=== PATIENT | female | born 1970 | race Caucasian/White ===

== ENCOUNTER 2016-10-09 08:48 | Emergency (ER) | payer BC, MEDICAID ==
[~2016-10-09] VITALS: Ht 149.9 cm; Wt 70.8 kg
[2016-10-09] MEDS ORDERED: METFORMIN HCL500 M1 ORAL (08:59)
[2016-10-09 09:05] VITALS: BP 142/87
[2016-10-09] MEDS ORDERED: LORazepam Inj 2mg/ml 1ml IV ONE (09:15)
--- NOTE | 2016-10-09 09:24 | Emergency Room Report ---
History of Present Illness General Chief Complaint: Dizziness Source: Patient Present Illness HPI The patient presents with an episode of dizziness and weakness that began this morning at 8:45. She was nauseated went to the bathroom, felt dizzy and had heaviness in her head. She did not vomit. She also had some diarrhea (loose). She started feeling tingling in her hands and feet. This is persistent. She denies any chest pain, headache, fevers. She did not see the color of the diarrhea. She ate breakfast this morning. She is diabetic on metformin. Her sugar was 160 when she felt this. She reports that she is under tremendous amount of stress at this time. She reports her last menstrual period was normal but she has heavy periods -- she has a history of fibroids. Never with episodes like this in the past. No change in medication recently. Allergies: Coded Allergies: PENICILLINS (Verified Allergy, Severe, Anaphylaxis, 10/09/16) Patient History Past Medical History: see triage record Social History: Denies: alcohol use, smoking Social History Narrative - works for billing department Last Menstrual Period: sep 28 Now: No Reviewed Nursing Documentation: PMH: Agreed, PSxH: Agreed Nursing Documentation-PMH Past Medical History: No History, Except For Hx Diabetes: Yes Review of Systems All Other Systems: negative except mentioned in HPI Physical Exam Vital Signs Date Time Temp Pulse Resp B/P Pulse Ox O2 Delivery O2 Flow Rate FiO2 10/09/16 08:55 98.2 93 18 142/87 100 Room Air Sp02 EP Interpretation: reviewed, normal General Appearance: well appearing, no apparent distress, GCS 15 Head: normocephalic Eyes: bilateral eye PERRL, bilateral eye normal inspection ENT: moist mucus membranes Neck: supple Respiratory: lungs clear, normal breath sounds Cardiovascular #1: regular rate, rhythm Cardiovascular #2: 2+ radial (R) Gastrointestinal: normal inspection, normal bowel sounds, non tender, no mass, non-distended Musculoskeletal: back normal, gait/station normal, normal range of motion Neurologic: alert, oriented x3, plan examiner III-XII nml as tested, motor strength/tone normal - no drift, DTRs symmetric, sensory intact - subjective tingling and heaviness, cerebellar normal, speech normal Psychiatric: anxious Skin: normal inspection, warm/dry Medical Decision Making Diagnostic Impression: Primary Impression: Near syncope Additional Impressions: Hypokalemia Stress reaction ER Course Patient with episode of nausea followed by weakness and tingling of all extrem with persistent disoriented feelings. DDx: viral syndrome, hyperventilation, electrolyte abnormality, ACS, arrhythmia, vasovagal, dehydration amongst others. Complicated history with persistent symptoms -- needs emergent evaluation with labs, EKG, cardiac monitoring. The patient will be treated with IV hydration, zofran and small dose of Ativan. Labs with hypokalemia. Replacement given. Patient improved with treatment. Discussed etiologies. Patient stable for outpatient observation and treatment. Laboratory Tests Test 10/09/16 09:50 White Blood Count 9.3 K/UL (4.8-10.8) Red Blood Count 4.88 M/UL (4.20-5.40) Hemoglobin 12.6 G/DL (12.0-16.0) Hematocrit 40.2 % (37.0-47.0) Mean Corpuscular Volume 82 FL (80-99) Mean Corpuscular Hemoglobin 25.7 PG (27.0-31.0) L Mean Corpuscular Hemoglobin Concent 31.2 G/DL (32.0-36.0) L Red Cell Distribution Width 14.5 % (11.6-14.8) Platelet Count 400 K/UL (150-450) Mean Platelet Volume 5.9 FL (6.5-10.1) L Neutrophils (%) (Auto) 69.0 % (45.0-75.0) Lymphocytes (%) (Auto) 24.5 % (20.0-45.0) Monocytes (%) (Auto) 5.0 % (1.0-10.0) Eosinophils (%) (Auto) 0.9 % (0.0-3.0) Basophils (%) (Auto) 0.6 % (0.0-2.0) Prothrombin Time 9.6 SEC (9.30-11.50) Prothrombin Time INR 0.9 (0.9-1.1) PTT 25 SEC (23-33) Urine Color Pale yellow Urine Appearance Slightly cloudy Urine pH 7 (4.5-8.0) Urine Specific [place] 1.005 (1.005-1.035) Urine Protein Negative (NEGATIVE) Urine Glucose (UA) Negative (NEGATIVE) Urine Ketones Negative (NEGATIVE) Urine Occult Blood 1+ (NEGATIVE) H Urine Nitrite Negative (NEGATIVE) Urine Bilirubin Negative (NEGATIVE) Urine Urobilinogen Normal MG/DL (0.0-1.0) Urine Leukocyte Esterase Negative (NEGATIVE) Urine RBC 0-2 /HPF (0 - 2) Urine WBC 0-2 /HPF (0 - 2) Urine Squamous Epithelial Cells Few /LPF (NONE/OCC) Urine Bacteria Few /HPF (NONE) Urine HCG, Qualitative Negative Sodium Level 138 mEQ/L (135-145) Potassium Level 3.3 mEQ/L (3.4-4.9) L Chloride Level 95 mEQ/L (98-107) L Carbon Dioxide Level 26 mEQ/L (20-30) Anion Gap 17 (5-15) H Blood Urea Nitrogen 12 mg/dL (7-23) Creatinine 0.7 mg/dL (0.5-0.9) Estimate Glomerular Filtration Rate > 60 mL/min (>60) Glucose Level 144 mg/dL (74-106) H Calcium Level 9.2 mg/dL (8.6-10.2) Total Bilirubin 0.3 mg/dL (0.0-1.2) Aspartate Amino Transferase (AST) 16 U/L (5-40) Alanine Aminotransferase (ALT) 15 U/L (3-33) Alkaline Phosphatase 72 U/L (35-104) Total Creatine Kinase 91 U/L (26-140) Troponin I < 0.30 ng/mL (<=0.30) Total Protein 7.8 g/dL (6.6-8.7) Albumin 4.4 g/dL (3.5-5.2) Globulin 3.4 g/dL Albumin/Globulin Ratio 1.2 (1.0-2.7) Thyroid Stimulating Hormone (TSH) 2.390 uIU/mL (0.300-4.500) Urine Opiates Screen Negative (NEGATIVE) Urine Barbiturates Screen Negative (NEGATIVE) Phencyclidine (PCP) Screen Negative (NEGATIVE) Urine Amphetamines Screen Negative (NEGATIVE) Urine Benzodiazepines Screen Negative (NEGATIVE) Urine Cocaine Screen Negative (NEGATIVE) Urine Marijuana (THC) Screen Negative (NEGATIVE) EKG Diagnostic Results Rate: tachycardiac ST Segments: no acute changes Rhythm Strip Diag. Results EP Interpretation: yes Rhythm: no PVC's, no ectopy, other - ST rate 105 Chest X-Ray Diagnostic Results EP Interpretation: Yes Findings: no consolidation, no effusion, no pneumothorax, no acute cardiopulmonary disease Number of Views: 1 Last Vital Signs Date Time Temp Pulse Resp B/P Pulse Ox O2 Delivery O2 Flow Rate FiO2 10/09/16 11:59 98.2 99 18 110/68 99 Room Air Status: improved Disposition: HOME, SELF-CARE Condition: Improved Scripts Ondansetron Odt* (ZOFRAN ODT*) 4 Mg Tab.rapdis 4 MG ORAL Q8H Y for Nausea & Vomiting, #6 TAB 0 Refills Prov: Primitivo Nascimento M.D. 10/09/16 Alprazolam* (XANAX*) 0.25 Mg Tablet 0.25 MG ORAL THREE TIMES A DAY Y for For Anxiety, #6 TAB 0 Refills try 1/2 tablet first Prov: Primitivo Nascimento M.D. 10/09/16 Potassium Chloride (K-Ora) 20 Meq/15 Ml Liquid 20 MEQ PO DAILY for 7 Days, ML Prov: Primitivo Nascimento M.D. 10/09/16 Primitivo Nascimento M.D. Oct 09, 2016 09:24
[2016-10-09] MEDS ORDERED: Tubing IV Cassette IV ONE (09:45)
[2016-10-09 10:00] VITALS: BP 130/75
[2016-10-09 10:03] LABS: APPEARANCE,URINE SLIGHTLY CLOUDY; KETONES,URINE NEGATIVE (NEGATIVE); LEUKOCYTE ESTERASE ,URINE NEGATIVE (NEGATIVE); NITRITE,URINE NEGATIVE (NEGATIVE); PH,URINE 7 (4.5-8.0); PROTEIN,URINE NEGATIVE (NEGATIVE); UROBILINOGEN,URINE NORMAL MG/DL (0.0-1.0)
[2016-10-09 10:05] LABS: BASOPHILS % (AUTO) 0.6 % (0.0-2.0); EOSINOPHILS % (AUTO) 0.9 % (0.0-3.0); LYMPHOCYTES % (AUTO) 24.5 % (20.0-45.0); MEAN CORPUSCULAR HEMOGLOBIN 25.7 PG (27.0-31.0); MEAN CORPUSCULAR HGB CONC 31.2 G/DL (32.0-36.0); MEAN CORPUSCULAR VOLUME 82 FL (80-99); MEAN PLATELET VOLUME 5.9 FL (6.5-10.1); PLATELET COUNT 400 K/UL (150-450); RED BLOOD COUNT 4.88 M/UL (4.20-5.40); RED CELL DISTRIBUTION WIDTH 14.5 % (11.6-14.8); WHITE BLOOD COUNT 9.3 K/UL (4.8-10.8)
[2016-10-09 10:11] LABS: INR 0.9 (0.9-1.1); PROTHROMBIN TIME 9.6 SEC (9.30-11.50)
[2016-10-09 10:16] LABS: ALANINE AMINOTRANSFERASE 15 U/L (3-33); ALBUMIN/GLOBULIN RATIO 1.2 (1.0-2.7); ANION GAP 17 (5-15); ASPARTATE AMINO TRANSFERASE 16 U/L (5-40); CALCIUM 9.2 mg/dL (8.6-10.2); CARBON DIOXIDE 26 mEQ/L (20-30); CHLORIDE 95 mEQ/L (98-107); CREATININE 0.7 mg/dL (0.5-0.9); GLOMERULAR FILTRATION RATE > 60 mL/min (>60); HEMOLYSIS 2; POTASSIUM 3.3 mEQ/L (3.4-4.9); SODIUM 138 mEQ/L (135-145); TOTAL PROTEIN 7.8 g/dL (6.6-8.7)
[2016-10-09 10:17] LABS: TROPONIN I < 0.30 ng/mL (<=0.30)
[2016-10-09 10:24] LABS: BACTERIA,URINE FEW /HPF; RBC,URINE 0-2 /HPF (0 - 2); SQUAMOUS EPITHELIAL CELL,UR FEW /LPF (NONE/OCC); WBC,URINE 0-2 /HPF (0 - 2)
[2016-10-09] MEDS ORDERED: KCl 10% 40mEq/30ml liquid ORAL STA (10:48)
[2016-10-09 11:00] VITALS: BP 110/68
[2016-10-09] MEDS ORDERED: XANAX0.25 MG ORAL (11:12)
[2016-10-09] MEDS ORDERED: ZOFRAN ODT4 MG ORAL (11:12)
[2016-10-09] MEDS ORDERED: K-SOL20 MEQ/15 PO (11:12)
[2016-10-09 11:59] VITALS: BP 110/68
--- NOTE | 2016-10-13 10:32 | Diagnostic Imaging Report ---
Indication: CP Technique: One view of the chest Comparison: none Findings: Lungs and pleural spaces are clear. Heart size is normal. Impression: No acute process
--- NOTE | 2016-10-13 15:08 | Cardiology Report ---
APPROVED REPORT EKG Measurement Heart [id number] N[address] and T wave abnormality Abnormal ECG
== END 2016-10-09 11:59 | disposition home or self-care (01) ==
LOC: EMR 09:42
DX: R55 Syncope and collapse (principal); E87.6 Hypokalemia; F43.9 Reaction to severe stress, unspecified; E11.9 Type 2 diabetes mellitus without complications; Z88.0 Allergy status to penicillin
CPT/HCPCS: 36415; 71010; 80053; 80300; 81003; 81025; 82550; 82962; 84443; 84484; 85025; 85610; 85730; 93005; 96361; 96374; 96375; 99284; J2405